=== PATIENT | male | born 1940 | race Caucasian/White ===

== ENCOUNTER → 2023-12-27 10:35 | Outpatient (REF) | payer OTHER, SELFPAY | LOC: MRI 3T 10:35 | PROVIDERS: ATTENDING PHYSICIAN Orthopaedic Surgery; FAMILY PHYSICIAN Internal Medicine | DX: M54.16 Radiculopathy, lumbar region (principal); M96.1 Postlaminectomy syndrome, not elsewhere classified; M48.062 Spinal stenosis, lumbar region with neurogenic claudication | CPT/HCPCS: 72158; A9575 ==

== ENCOUNTER → 2025-01-05 12:55 | Outpatient (REF) | payer OTHER, SELFPAY | LOC: HWRAD 12:55 | PROVIDERS: ATTENDING PHYSICIAN Nurse Practitioner Family | DX: R05.3 Chronic cough (principal) | CPT/HCPCS: 71046 ==

== ENCOUNTER → 2025-02-05 12:43 | Outpatient (REF) | payer OTHER, SELFPAY | LOC: RCS 12:43 | PROVIDERS: ATTENDING PHYSICIAN Nurse Practitioner; FAMILY PHYSICIAN Internal Medicine | DX: R55 Syncope and collapse (principal); Q21.12 Patent foramen ovale | CPT/HCPCS: 93306 ==

== ENCOUNTER → 2025-04-10 12:37 | Outpatient (REF) | payer OTHER, SELFPAY | LOC: HWRAD 12:37 | PROVIDERS: ATTENDING PHYSICIAN Internal Medicine Gastroenterology; FAMILY PHYSICIAN Internal Medicine | DX: R19.4 Change in bowel habit (principal) | CPT/HCPCS: 74018 ==

== ENCOUNTER → 2025-05-29 11:41 | Outpatient (REF) | payer OTHER, SELFPAY | LOC: HWRAD 11:41 | PROVIDERS: ATTENDING PHYSICIAN Nurse Practitioner Family; FAMILY PHYSICIAN Internal Medicine | DX: M54.41 Lumbago with sciatica, right side (principal); M54.42 Lumbago with sciatica, left side | CPT/HCPCS: 72110 ==